=== PATIENT | female | born 1980 | race Caucasian/White ===

== ENCOUNTER 2022-01-25 12:58 | Emergency (ER) | payer BC | END 2022-01-25 14:15 | disposition home or self-care (01) | LOC: FB.ED 12:58 | DX: R55 Syncope and collapse (principal) | CPT/HCPCS: 36415; 80048; 85025; 93005; 99284-25 ==

== ENCOUNTER 2023-06-24 11:24 | Emergency (ER) | payer BC ==
[2023-06-24] MEDS: Ketorolac 30 MG/ML SDV IVPUSH ONE (11:34)
[2023-06-24] MEDS: Sodium Chloride 0.9% 1,000 ML IV SCH (11:34)
[2023-06-24 11:40] LABS: BASOPHILS PERCENT AUTO 0.6 % (0.2-1.5); EOSINOPHILS ABSOLUTE AUTO 0.4 x10-3/uL (0.0-0.8); EOSINOPHILS PERCENT AUTO 5.6 % (0.6-8.1); HEMATOCRIT 39.8 % (34.2-48.2); HEMOGLOBIN 13.5 g/dL (11.4-15.5); LYMPHOCYTES ABSOLUTE AUTO 2.6 x10-3/uL (1.0-4.4); LYMPHOCYTES PERCENT AUTO 33.4 % (18.4-52.1); MEAN CORPUSCULAR HEMOGLOBIN 29.1 pg (23.9-33.9); MEAN CORPUSCULAR HGB CONC 33.8 g/dL (31.9-34.8); MEAN CORPUSCULAR VOLUME 86.2 fL (76.7-100.5); MEAN PLATELET VOLUME 8.4 fL (7.1-12.4); MONOCYTES ABSOLUTE AUTO 0.5 x10-3/uL (0.3-1.0); MONOCYTES PERCENT AUTO 6.8 % (4.4-15.7); NEUTROPHILS ABSOLUTE AUTO 4.2 x10-3/uL (1.5-6.3); NEUTROPHILS PERCENT AUTO 53.6 % (30.8-76.2); PLATELET COUNT,PLT 264 x10(3)uL (151-488); RED BLOOD CELL COUNT 4.62 x10(6)uL (3.60-5.20); RED CELL DISTRIBUTION WIDTH 13.4 % (12.3-16.5); WHITE BLOOD CELL COUNT,WBC 7.9 x10-3/uL (3.0-10.3)
[2023-06-24 11:44] LABS: BLOOD UREA NITROGEN,BUN 11 mg/dL (7-18); CARBON DIOXIDE,CO2 19 mmol/L (21-32); CHLORIDE,CL 103 mmol/L (100-110); CREATININE 1.1 mg/dL (0.55-1.02); ESTIMATED GFR 65 mL/min (>60); GLUCOSE RANDOM 134 mg/dL (80-116); POTASSIUM,K 3.7 mmol/L (3.5-5.3); SODIUM,NA 138 mmol/L (135-145)
[2023-06-24] MEDS: levETIRAcetam 500 MG Tab PO ONE (11:44)
[2023-06-24 11:50] LABS: A/G RATIO 0.9; ALANINE AMINOTRANSFERASE,ALT 29 U/L (12-36); ALBUMIN 3.8 g/dL (3.5-5.2); ALKALINE PHOSPHATASE 75 IU/L (56-112); ASPARTATE AMNIOTRANSFERASE,AST 17 IU/L (5-25); BILIRUBIN TOTAL 0.6 mg/dL (0.1-1.3); MAGNESIUM 1.7 mg/dL (1.8-2.5); PHOSPHORUS 2.6 mg/dL (2.6-4.6); PROTEIN TOTAL,TP 7.9 g/dL (6.0-8.0)
[2023-06-24] MEDS: Ondansetron 4 MG/2 ML SDV IVPUSH ONE (11:52)
[2023-06-24] MEDS: Magnesium Sulfate/Water 2 GM in Premix Bag 1 BAG IV ONE (12:13)
[2023-06-26 21:41] LABS: KEPPRA (LEVETIRACETAM) 16 ug/mL (10-40)
== END 2023-06-24 13:30 | disposition home or self-care (01) ==
LOC: FB.ED 11:24
DX: G40.909 Epilepsy, unspecified, not intractable, without status epilepticus (principal); Z79.899 Other long term (current) drug therapy
CPT/HCPCS: 36415; 80053; 80177; 83735; 84100; 84484; 85025; 93005; 93010; 96361; 96365; 96375; 99283; 99284-25; A9270-GY; J1885; J2405; J3475; J7030